=== PATIENT | female | born 1940 | race Caucasian/White ===

== ENCOUNTER 2016-09-03 08:00 | Outpatient (CLI) | payer MEDICARE, OTHER | END 2016-09-03 23:59 | DX: I12.9 Hypertensive chronic kidney disease with stage 1 through stage 4 chronic kidney disease, or unspecified chronic kidney disease (principal); N18.3 Chronic kidney disease, stage 3 (moderate); K52.9 Noninfective gastroenteritis and colitis, unspecified ==

== ENCOUNTER 2016-09-19 16:48 | Outpatient (CLI) | payer MEDICARE, OTHER | END 2016-09-19 16:49 | disposition home or self-care (01) | DX: R35.0 Frequency of micturition (principal) ==

== ENCOUNTER 2016-09-25 08:05 | Outpatient (CLI) | payer MEDICARE, OTHER ==
[2016-09-25] MEDS ORDERED: IOPAMIDOL-300 50 ML VIAL PO ONE (10:32)
[2016-09-25] MEDS ORDERED: IOPAMIDOL-300 100 ML VIAL IVP ONE (10:32)
== END 2016-09-25 08:06 | disposition home or self-care (01) ==
DX: K63.9 Disease of intestine, unspecified (principal); R14.0 Abdominal distension (gaseous); R19.4 Change in bowel habit; R16.0 Hepatomegaly, not elsewhere classified; R19.00 Intra-abdominal and pelvic swelling, mass and lump, unspecified site
CPT/HCPCS: 74177; Q9967

== ENCOUNTER 2016-10-03 10:49 | Inpatient (IN) | payer MEDICARE, OTHER ==
[2016-10-03] MEDS ORDERED: LACTATED RINGERS 1,000 ML IV ONE ×4 (11:03→18:12)
[2016-10-03] MEDS ORDERED: MIDAZOLAM 2 MG/2 ML VIAL ONE (12:07)
[2016-10-03] MEDS ORDERED: PROPOFOL 200 MG/20 ML VIAL IVP ONE (12:53)
[2016-10-03] MEDS ORDERED: LIDOCAINE 2% 10 ML MDV SUBQ ONE (12:53)
[2016-10-03] MEDS ORDERED: HYDROmorphone 1 MG/ML SYRINGE IVP ONE (12:53)
[2016-10-03] MEDS ORDERED: NEOSTIGMINE 1 MG/1 ML 10 ML MDV IVP ONE (12:53)
[2016-10-03] MEDS ORDERED: ACETAMINOPHEN 1,000 MG/100 ML VIAL IV ONE (12:53)
[2016-10-03] MEDS ORDERED: MIDAZOLAM 2 MG/2 ML VIAL IVP ONE (12:53)
[2016-10-03] MEDS ORDERED: DEXAMETHASONE 4 MG/ML VIAL IVP ONE (12:53)
[2016-10-03] MEDS ORDERED: ROCURONIUM 50 MG/5 ML VIAL IVP ONE (12:53)
[2016-10-03] MEDS ORDERED: SUCCINYLCHOLINE 200 MG/10 ML VIAL IVP ONE (12:53)
[2016-10-03] MEDS ORDERED: ONDANSETRON 4 MG/2 ML VIAL IVP ONE (12:53)
[2016-10-03] MEDS ORDERED: ePHEDrine 50 MG/ML VIAL IVP ONE (12:53)
[2016-10-03] MEDS ORDERED: KETOROLAC 30 MG/ML VIAL IVP ONE (12:53)
[2016-10-03] MEDS ORDERED: ESMOLOL 100 MG/10 ML VIAL IVP ONE (12:53)
[2016-10-03] MEDS ORDERED: PHENYLEPHRINE 50 MG/5 ML VIAL IV ONE (12:53)
[2016-10-03] MEDS ORDERED: GLYCOPYRROLATE 1 MG/5 ML VIAL IVP ONE (12:53)
[2016-10-03] MEDS ORDERED: AMPICILLIN/SULBACTAM 3 GM in SODIUM CHLORIDE 0.9% MINIBAG 100 ML IV ONE (13:54)
[2016-10-03] MEDS ORDERED: POTASSIUM CHLORIDE INJ 40 MEQ in SODIUM CHLORIDE 0.9% 480 ML IV ONE (14:25)
[2016-10-03] MEDS ORDERED: BUPIVACAINE 0.5% PF 30 ML VIAL SUBQ ONE (17:18)
[2016-10-03] MEDS ORDERED: LIDOCAINE 1%-EPI 1:100000 20 ML MDV SUBQ ONE (17:19)
[2016-10-03] MEDS ORDERED: METOCLOPRAMIDE 10 MG/2 ML VIAL IVP PRN (18:31)
[2016-10-03] MEDS ORDERED: HYDROmorphone 1 MG/ML SYRINGE IVP PRN (18:31)
[2016-10-03] MEDS ORDERED: LORazepam 2 MG/ML SYRINGE IVP PRN (18:31)
[2016-10-03] MEDS ORDERED: BENZOCAINE/TETRACAINE/BUTAMBEN 20 GM MM PRN ×2 (18:31→19:05)
[2016-10-03] MEDS ORDERED: diphenhydrAMINE INJ 50 MG/ML VIAL IVP PRN (18:45)
[2016-10-03] MEDS ORDERED: HYDROmorphone PCA 10 MG IV PRN (18:45)
[2016-10-03] MEDS ORDERED: BENZOCAINE/TETRACAINE/BUTAMBEN SPRAY 56 GM MM PRN (19:01)
[2016-10-03] MEDS: AMPICILLIN/SULBACTAM 3 GM in SODIUM CHLORIDE 0.9% MINIBAG 100 ML IV SCH ×2 (19:32→23:52)
[2016-10-03] MEDS: PANTOPRAZOLE 40 MG VIAL IVP SCH (19:32)
[2016-10-03] MEDS: D5NS W/20 MEQ KCL 1,000 ML IV SCH (19:32)
[2016-10-04] MEDS: D5NS W/20 MEQ KCL 1,000 ML IV SCH ×3 (02:39→22:09)
[2016-10-04] MEDS: AMPICILLIN/SULBACTAM 3 GM in SODIUM CHLORIDE 0.9% MINIBAG 100 ML IV SCH ×2 (06:10→12:25)
[2016-10-04] MEDS: PANTOPRAZOLE 40 MG VIAL IVP SCH (06:11)
[2016-10-04] MEDS: ENOXAPARIN 40 MG/0.4 ML SYRINGE SUBQ SCH (08:49)
[2016-10-04] MEDS: AZILSARTAN MEDOXOMIL 80 MG PO SCH (08:52)
[2016-10-04] MEDS: ACETAMINOPHEN 1,000 MG/100 ML 100 ML IV PRN (13:21)
[2016-10-04] MEDS: HYDROmorphone PCA 10 MG IV PRN (19:59)
[2016-10-05] MEDS: ACETAMINOPHEN 1,000 MG/100 ML 100 ML IV PRN ×2 (00:26→17:17)
[2016-10-05] MEDS: PANTOPRAZOLE 40 MG VIAL IVP SCH (07:26)
[2016-10-05] MEDS: D5NS W/20 MEQ KCL 1,000 ML IV SCH ×2 (08:20→16:10)
[2016-10-05] MEDS ORDERED: SODIUM PHOSPHATE 20 MMOL in SODIUM CHLORIDE 0.9% 250 ML IV ONE (09:00)
[2016-10-05] MEDS: ENOXAPARIN 40 MG/0.4 ML SYRINGE SUBQ SCH (09:50)
[2016-10-05] MEDS: AZILSARTAN MEDOXOMIL 80 MG PO SCH (10:03)
[2016-10-06] MEDS: HYDROmorphone PCA 10 MG IV PRN (00:16)
[2016-10-06] MEDS: D5NS W/20 MEQ KCL 1,000 ML IV SCH ×3 (00:27→21:26)
[2016-10-06] MEDS: PANTOPRAZOLE 40 MG VIAL IVP SCH (06:18)
[2016-10-06] MEDS ORDERED: METOPROLOL 5 MG/5 ML VIAL IVP ONE ×2 (08:14→09:00)
[2016-10-06] MEDS: AZILSARTAN MEDOXOMIL 80 MG PO SCH (08:41)
[2016-10-06] MEDS: ENOXAPARIN 40 MG/0.4 ML SYRINGE SUBQ SCH (08:45)
[2016-10-06] MEDS ORDERED: IOPAMIDOL-300 50 ML VIAL IVP ONE (10:30)
[2016-10-06] MEDS: diltiaZEM 30 MG TABLET PO SCH ×2 (12:53→16:58)
[2016-10-06] MEDS: CEFEPIME 2 GM in SODIUM CHLORIDE 0.9% MINIBAG 100 ML IV SCH ×2 (16:58→21:25)
[2016-10-06] MEDS: ACETAMINOPHEN 1,000 MG/100 ML 100 ML IV SCH (18:36)
[2016-10-07] MEDS: diltiaZEM 30 MG TABLET PO SCH ×4 (00:02→17:23)
[2016-10-07] MEDS: ACETAMINOPHEN 1,000 MG/100 ML 100 ML IV SCH ×3 (02:20→17:23)
[2016-10-07] MEDS: HYDROmorphone PCA 10 MG IV PRN (02:51)
[2016-10-07] MEDS: PANTOPRAZOLE 40 MG VIAL IVP SCH (06:01)
[2016-10-07] MEDS ORDERED: SODIUM CHLORIDE FLUSH 0.9% 10 ML SYRINGE IVP ONE (06:40)
[2016-10-07] MEDS: ONDANSETRON 4 MG/2 ML VIAL IVP PRN (06:43)
[2016-10-07] MEDS: CEFEPIME 2 GM in SODIUM CHLORIDE 0.9% MINIBAG 100 ML IV SCH ×2 (09:07→20:53)
[2016-10-07] MEDS: D5NS W/20 MEQ KCL 1,000 ML IV SCH (09:07)
[2016-10-07] MEDS: AZILSARTAN MEDOXOMIL 80 MG PO SCH (09:08)
[2016-10-07] MEDS: ENOXAPARIN 40 MG/0.4 ML SYRINGE SUBQ SCH (09:08)
[2016-10-07] MEDS ORDERED: D5NS W/20 MEQ KCL 1,000 ML IV SCH (15:03)
[2016-10-08] MEDS: diltiaZEM 30 MG TABLET PO SCH ×4 (00:36→18:25)
[2016-10-08] MEDS: ACETAMINOPHEN 1,000 MG/100 ML 100 ML IV SCH ×3 (02:11→18:29)
[2016-10-08] MEDS: PANTOPRAZOLE 40 MG VIAL IVP SCH (06:16)
[2016-10-08] MEDS: AZILSARTAN MEDOXOMIL 80 MG PO SCH (09:19)
[2016-10-08] MEDS: ENOXAPARIN 40 MG/0.4 ML SYRINGE SUBQ SCH (09:19)
[2016-10-08] MEDS: CEFEPIME 2 GM in SODIUM CHLORIDE 0.9% MINIBAG 100 ML IV SCH ×2 (09:19→22:07)
[2016-10-08] MEDS: HYDROmorphone PCA 10 MG IV PRN (15:05)
[2016-10-08] MEDS: HYDROcod/ACETAM 5/325 MG TABLET PO PRN (19:37)
[2016-10-08] MEDS: ACETAMINOPHEN 500 MG TABLET PO PRN (19:38)
[2016-10-08] MEDS: D5NS W/20 MEQ KCL 1,000 ML IV SCH (19:40)
[2016-10-08] MEDS ORDERED: HYDROmorphone 1 MG/ML SYRINGE IVP PRN (20:23)
[2016-10-09] MEDS: HYDROcod/ACETAM 5/325 MG TABLET PO PRN ×4 (00:24→17:04)
[2016-10-09] MEDS: diltiaZEM 30 MG TABLET PO SCH ×4 (00:30→17:03)
[2016-10-09] MEDS: D5NS W/20 MEQ KCL 1,000 ML IV SCH (00:48)
[2016-10-09] MEDS: PANTOPRAZOLE 40 MG VIAL IVP SCH (06:10)
[2016-10-09] MEDS: ONDANSETRON 4 MG/2 ML VIAL IVP PRN ×2 (08:01→12:24)
[2016-10-09] MEDS: ACETAMINOPHEN 500 MG TABLET PO PRN (08:02)
[2016-10-09] MEDS: AZILSARTAN MEDOXOMIL 80 MG PO SCH (09:07)
[2016-10-09] MEDS: CEFEPIME 2 GM in SODIUM CHLORIDE 0.9% MINIBAG 100 ML IV SCH (09:07)
[2016-10-09] MEDS: ENOXAPARIN 40 MG/0.4 ML SYRINGE SUBQ SCH (09:07)
[2016-10-09] MEDS ORDERED: SIMETHICONE CHEW 80 MG TABLET PO SCH (13:00)
== END 2016-10-09 17:33 | disposition home or self-care (01) | DRG 375 ==
PROC: 0DJD8ZZ Inspection of Lower Intestinal Tract, Via Natural or Artificial Opening Endoscopic (ICD-10-PCS; 2016-10-03)
PROC: 0DBN0ZZ Excision of Sigmoid Colon, Open Approach (ICD-10-PCS; principal; 2016-10-03 12:00)
PROC: 0D1N0Z4 Bypass Sigmoid Colon to Cutaneous, Open Approach (ICD-10-PCS; 2016-10-03 12:00)
DX: C18.7 Malignant neoplasm of sigmoid colon (principal); C48.1 Malignant neoplasm of specified parts of peritoneum; I48.91 Unspecified atrial fibrillation; R09.02 Hypoxemia; I10 Essential (primary) hypertension; G47.33 Obstructive sleep apnea (adult) (pediatric); M43.20 Fusion of spine, site unspecified; E66.9 Obesity, unspecified; Z68.29 Body mass index [BMI] 29.0-29.9, adult; Z79.82 Long term (current) use of aspirin; Z79.899 Other long term (current) drug therapy; Z86.79 Personal history of other diseases of the circulatory system; Z96.649 Presence of unspecified artificial hip joint; Z87.891 Personal history of nicotine dependence

== ENCOUNTER 2016-10-29 06:04 | Day surgery (SDC) | payer MEDICARE, OTHER ==
[2016-10-29] MEDS ORDERED: ceFAZolin 2 GM/50 ML 50 ML IV ONE (06:35)
[2016-10-29] MEDS ORDERED: LACTATED RINGERS 1,000 ML IV ONE (06:48)
[2016-10-29] MEDS ORDERED: BUPIVACAINE 0.5% PF 30 ML VIAL SUBQ ONE ×3 (07:58→08:06)
[2016-10-29] MEDS ORDERED: ONDANSETRON 4 MG/2 ML VIAL IVP ONE (08:10)
[2016-10-29] MEDS ORDERED: fentaNYL 100 MCG/2 ML VIAL IVP ONE (08:10)
[2016-10-29] MEDS ORDERED: PROPOFOL 200 MG/20 ML VIAL IVP ONE (08:10)
[2016-10-29] MEDS ORDERED: MIDAZOLAM 2 MG/2 ML VIAL IVP ONE (08:10)
[2016-10-29] MEDS ORDERED: LIDOCAINE-MPF 2% 5 ML VIAL IM ONE (08:10)
--- NOTE | 2016-10-29 08:52 | OPERATIVE REPORT ---
Operative Report - General Procedure Date: 10/29/16 Planned Procedure: Portacath placement Pre-Op Diagnosis: Ovarian cancer Post Op Diagnosis: Same - Procedure Note Primary Surgeon: Kalani Anesthesia Provider: Mckinley Abbasi Anesthesia Technique: MAC (+ 10 mL 1/2% marcaine [id number] crystalloid) Estimated Blood Loss (in cc): 5 Complications: None. - Other Other Information/Narrative: OPERATIVE DESCRIPTION/REPORT: After verbal and written informed consent was obtained detailing the risks of infection, bleeding requiring transfusion with its risks, nerve injury, and , and after I met with the patient confirming the surgery and the site of the surgery and after initialing the site of the surgery with a surgical marker , the patient was brought to the operative suite and placed supine on the operating table. Great care was taken to avoid pressure points to prevent pressure necrosis or nerve injury. Monitoring devices were applied along with TEDs and pneumatic compressive stockings (to prevent DVT). The patient received preoperative antibiotics for surgical prophylaxis. Cosme Abbasi sedated and anethetized the patient for the entire procedure. The patient was prepped and draped in the usual sterile manner. With the patient draped my initials were clearly visible. A "time in" then confirmed that the patient was identified with 3 identifiers (name, birthdate and medical record number), the history and physical was in the chart, the signed consent confirming the procedure was in the chart, the patient was in the correct position, the aforementioned prophylactic measures were in place or given, we had the correct personel and equipment to complete the procedure and that anesthesia, surgery and nursing were given an opportunity to express any concerns. With the agreement of everyone in the room, we proceeded with the operation. After the subclavian region was anesthetized using % marcaine and the patient placed in Trendelenberg position, an Angi[employer] Smartport port kit ( Catalog #[id number], Lot #[id number]) was opened. The finder needle was inserted into the subclavian vein taking great care to place it just under the clavicle in order to minimize the risk of pneumothorax. When good venous blood return was obtained, the wire was placed through the needle and into the vein without difficulty. Cardiac irritability confirmed that the catheter was correctly going down towards the heart. Below and lateral to the needle insertion site, the area was anesthetized again using % marcaine and a transverse incision was made just large enough to accommodate the port. This incision was taken down to the fascia using sharp dissection and the area for the port was created using blunt downward dissection. Meticulous hemostasis was obtained using Bovie electrocautery. A knife was inserted along the wire to widen the insertion site and this was further dilated using a Ely. The port was flushed with heparinized saline and placed in the pouch and the catheter was then passed to the needle opening using the passer. The catheter was then measured against the patients anterior chest and cut so that the tip would lie 2 cm below the manubrial-sternal junction. The port was secured to the fascia using a 3-0 Prolene on the side of the opening of the port. The catheter was then wiped and wrapped with a heparinized soaked 4x4. The dilator and sheath were then carefully inserted over the wire and the dilator and wire withdrawn. The catheter was then inserted into the sheath and the sheath was broken away from the catheter leaving the catheter in place in the vein. An X- ray confirmed placement of the catheter tip in the right atrium/supracardiac vena cava without pneumothorax. Using a Hueber needle the port was accessed and good blood return as well as easy flush was noted. The subcutaneous tissue was approximated using 3-0 Vicryl and the skin incisions were approximated with 4-0 Monocryl in a subcuticular fashion. The skin prep was washed off and prepped with benzoin. Steristrips were applied. At this point a time out was performed that confirmed that all the counts were correct, the procedure that was performed, the blood loss, the IV fluids administered, and the patients condition. A dressing was placed on the wound. Having tolerated the procedure well, the patient was taken to short stay in good and stable condition. The patient was instructed that the Portacath could be used immediately.
--- NOTE | 2016-10-29 09:00 | XRAY Report ---
FRONTAL CHEST: 10/29/2016 CLINICAL INDICATION: Port placement. FINDINGS: Frontal view of the chest demonstrates a left subclavian port, with the catheter tip direc sudhakar superiorly, approximately 4 cm past the cavoatrial junction. No gross pneumothorax is seen on th is supine film. The cardiac silhouette is within normal limits. The lungs are clear. IMPRESSION: PORT PLACEMENT ABOVE. Results called to Dr. Uriarte in the operating room on 10/29/2016 at 8:40 a.m. JOB #: [id number] EXT JOB #:[id number]
[2016-10-29] MEDS ORDERED: METOCLOPRAMIDE 10 MG/2 ML VIAL IVP ONE (09:01)
--- NOTE | 2016-10-29 09:37 | XRAY Report ---
FRONTAL CHEST: 10/29/2016 CLINICAL INDICATION: Postop port placement. FINDINGS: Frontal view of the chest demonstrates a normal cardiac silhouette. A left subclavian port terminates in the superior vena cava. The lungs are clear. No effusion or pneumothorax is present. IMPRESSION: LEFT SUBCLAVIAN PORT TERMINATING IN THE DISTAL SUPERIOR VENA CAVA. JOB #: [id number] EXT JOB #:[id number]
[2016-10-29 09:39] VITALS: BP 149/76
== END 2016-10-29 06:05 | disposition home or self-care (01) ==
LOC: SDS 06:04
PROVIDERS: ATTEND Surgery
PROC: 02HV33Z Insertion of Infusion Device into Superior Vena Cava, Percutaneous Approach (ICD-10-PCS; 2016-10-29)
PROC: 0JH60XZ Insertion of Tunneled Vascular Access Device into Chest Subcutaneous Tissue and Fascia, Open Approach (ICD-10-PCS; principal; 2016-10-29 07:30)
DX: C56.9 Malignant neoplasm of unspecified ovary (principal); I12.9 Hypertensive chronic kidney disease with stage 1 through stage 4 chronic kidney disease, or unspecified chronic kidney disease; N18.3 Chronic kidney disease, stage 3 (moderate); I48.91 Unspecified atrial fibrillation; Z80.8 Family history of malignant neoplasm of other organs or systems; Z80.1 Family history of malignant neoplasm of trachea, bronchus and lung; G47.30 Sleep apnea, unspecified; E66.9 Obesity, unspecified; Z68.28 Body mass index [BMI] 28.0-28.9, adult
CPT/HCPCS: 36561; 71010; C1788; J0690; J7120

== ENCOUNTER 2016-12-28 15:21 | Outpatient (CLI) | payer MEDICARE, OTHER ==
--- NOTE | 2016-12-29 09:14 | XRAY Report ---
TROY' VIEW OF THE PARANASAL SINUSES: 12/28/2016 CLINICAL INDICATION: Nosebleed. COMPARISON: CT of the head 02/01/2016. Single Fernandez' view of the paranasal sinuses demonstrates normal aeration. Aneurysm coil material is noted in the left temporal fossa. No definite air-fluid levels are seen. IMPRESSION: NO DEFINITE EVIDENCE OF SINUS DISEASE. JOB #: [id number] EXT JOB #:[id number]
== END 2016-12-28 15:22 | disposition home or self-care (01) ==
LOC: DI.N 15:21
PROVIDERS: ATTEND Physician Assistant Medical
DX: R04.0 Epistaxis (principal)
CPT/HCPCS: 70210

== ENCOUNTER 2017-05-28 08:00 | Outpatient (CLI) | payer MEDICARE, OTHER ==
[2017-05-28 19:02] LABS: BASOPHILS % (AUTO) 0.2 %; HCT - HEMATOCRIT 29.6 % (37.0-47.0); HGB - HEMOGLOBIN 9.6 g/dL (12.0-16.0); LYMPHOCYTES % (AUTO) 9.5 %; MEAN CORPUSCULAR HGB CONC 32.3 g/dL (32.0-36.0); MEAN CORPUSCULAR VOLUME 96.1 fL (81.0-99.0); MEAN PLATELET VOLUME 8.6 fL (7.9-10.8); MONOCYTES % (AUTO) 17.7 %; NEUTROPHILS % (AUTO) 72.6 %; RED BLOOD COUNT 3.08 10^6/uL (4.20-5.40); RED CELL DISTRIBUTION WIDTH 17.4 % (12.0-15.0); UNCORRECTED WHITE BLOOD COUNT 11.2 x10^3/uL; WHITE BLOOD COUNT 11.2 x10^3/uL (4.8-10.8)
[2017-05-28 19:38] LABS: ALBUMIN/GLOBULIN RATIO 0.5 (1.0-2.2); BILIRUBIN,TOTAL 0.5 mg/dL (0.2-1.0); BUN - BLOOD UREA NITROGEN 12 mg/dL (6-20); CALCIUM 9.2 mg/dL (8.5-10.3); CARBON DIOXIDE - CO2 24 mmol/L (21-32); CHLORIDE 95 mmol/L (101-111); GFR - MDRD 54 (>89); GLUCOSE 120 mg/dL (70-100); IRON 13 ug/dL (28-170); SODIUM 133 mmol/L (135-145); TOTAL IRON BINDING CAPACITY 147 ug/dL (250-450); TOTAL PROTEIN 7.8 g/dL (6.7-8.2); TRANSFERRIN 105 mg/dL (192-382)
[2017-05-28 21:29] LABS: BAND NEUTROPHILS % (MANUAL) 21 %; LYMPHOCYTES % (MANUAL) 7 %; NEUTROPHILS % (MANUAL) 60 %; PLATELET ESTIMATE, MANUAL NORMAL (130-450,000) (NORMAL); PLATELET MORPHOLOGY RARE GIANT PLATELETS (NORMAL); TOTAL CELLS COUNTED 100
[2017-05-28 21:30] LABS: NP AUTO DIFFERENTIAL? YES; NP MAN DIFFERENTIAL? NO
== END 2017-05-28 08:01 | disposition home or self-care (01) ==
LOC: LAB.WCP 08:00
PROVIDERS: ATTEND Physician Assistant Medical
DX: C18.7 Malignant neoplasm of sigmoid colon (principal); R63.0 Anorexia; R11.0 Nausea
CPT/HCPCS: 36415; 80053; 82728; 83540; 84466; 85025; 86140

== ENCOUNTER 2017-05-29 12:19 | Outpatient (CLI) | payer MEDICARE, OTHER ==
[2017-05-29] MEDS ORDERED: IOPAMIDOL-300 50 ML VIAL ONE (12:27)
[2017-05-29] MEDS ORDERED: IOPAMIDOL-300 100 ML VIAL ONE (12:27)
[2017-05-29] MEDS ORDERED: IOPAMIDOL-300 50 ML VIAL PO ONE (14:01)
[2017-05-29] MEDS ORDERED: IOPAMIDOL-300 100 ML VIAL IVP ONE (14:01)
--- NOTE | 2017-05-29 15:32 | CT Report ---
EXAM: CT OF THE ABDOMEN AND PELVIS WITH CONTRAST: 05/29/2017 CLINICAL INDICATION: Anemia, nausea, anorexia. TECHNIQUE: Axial CT images of the abdomen and pelvis were obtained with 100 mL of Isovue 300 intravenously as well as oral contrast. COMPARISON: 03/19/2017. FINDINGS: Limited evaluation of the lung bases demonstrates minimal atelectasis. ABDOMEN: There is a small incisional abscess in the superior portion of the anterior abdominal incision, measuring 2.3 x 1.7 cm in the subcutaneous fat. The liver demonstrates multiple hypodensities, measuring up to 1.4 cm in the lateral left lobe, without significant interval change from previous. The spleen, pancreas, kidneys and adrenal glands appear unremarkable. The gallbladder is not dilated. There is a large abscess running in the left paracolic gutter, which extends from the level of the mid pole of left kidney down into the left iliac fossa in the pelvis, measuring 8.8 x 5.1 by approximately 17 cm. No small bowel dilatation is seen. PELVIS: There has been reversal of the left lower quadrant colostomy. Extending inferiorly from the staple line is a second abscess collection, measuring 3.6 x 7.6 x 3.1 cm. Additionally, there is a second incisional collection, measuring 2.8 x 2.6 cm in the lower anterior abdominal wall incision site. The osseous structures demonstrate degenerative and postsurgical changes. IMPRESSION: LARGE LEFT PERICOLIC GUTTER ABSCESS, ABSCESS IN THE LEFT PELVIS EXTENDING INFERIORLY FROM THE SIGMOID ANASTOMOSIS LINE, AND TWO SMALL ABSCESSES IN THE ANTERIOR ABDOMINAL WALL INCISION. CRITICAL RESULTS: Results called to Melody Del Angel PA-C, on 05/29/2017 at 2:[address] p[address] In accordance with CT protocol optimization, one or more of the following dose reduction techniques were utilized for this exam: automated exposure control, adjustment of mA and/or KV based on patient size, or use of iterative reconstructive technique. MD BRIJESH Jackson/KEREN TD: 05/29/2017 15:31 MTDD
== END 2017-05-29 12:20 | disposition home or self-care (01) ==
LOC: DI 12:19
PROVIDERS: ATTEND Physician Assistant Medical
DX: T81.4XXA Infection following a procedure, initial encounter (principal); K65.1 Peritoneal abscess; D64.9 Anemia, unspecified; R11.0 Nausea; R63.0 Anorexia; C18.7 Malignant neoplasm of sigmoid colon
CPT/HCPCS: 74177; Q9967

== ENCOUNTER 2017-06-06 08:00 | Outpatient (CLI) | payer MEDICARE, OTHER | END 2017-06-06 08:01 | disposition home or self-care (01) | LOC: LAB.WCP 08:00 | PROVIDERS: ATTEND Family Medicine | DX: R30.0 Dysuria (principal) | CPT/HCPCS: 87086 ==

== ENCOUNTER 2017-06-21 18:59 | Emergency (ER) | payer MEDICARE, OTHER ==
[2017-06-21] MEDS ORDERED: SODIUM CHLORIDE 0.9% 1,000 ML IV ONE ×2 (19:20→20:05)
[2017-06-21] MEDS ORDERED: SODIUM CHLORIDE IV ONE (19:26)
[2017-06-21 20:01] LABS: BASOPHILS % (AUTO) 0.1 %; HGB - HEMOGLOBIN 9.2 g/dL (12.0-16.0); LYMPHOCYTES # (AUTO) 1.9 10^3/uL (1.5-3.5); LYMPHOCYTES % (AUTO) 14.7 %; MEAN CORPUSCULAR HEMOGLOBIN 31.3 pg (27.0-31.0); MEAN CORPUSCULAR HGB CONC 33.7 g/dL (32.0-36.0); MEAN PLATELET VOLUME 7.2 fL (7.9-10.8); MONOCYTES % (AUTO) 15.3 %; NEUTROPHILS # (AUTO) 9.2 10^3/uL (1.5-6.6); NEUTROPHILS % (AUTO) 69.9 %; PLT - PLATELET COUNT 256 10^3/uL (130-450); RED BLOOD COUNT 2.93 10^6/uL (4.20-5.40); RED CELL DISTRIBUTION WIDTH 17.8 % (12.0-15.0); WHITE BLOOD COUNT 13.2 x10^3/uL (4.8-10.8)
[2017-06-21] MEDS ORDERED: PROMETHAZINE INJ 12.5 MG in SODIUM CHLORIDE 0.9% 50 ML IV STA (20:08)
--- NOTE | 2017-06-21 20:08 | ED Physician Documentation ---
History of Present Illness - Stated complaint Stated Complaint: NAUSEA - Chief complaint Chief Complaint: Abd Pain - History obtained from History obtained from: Patient, Family - History of Present Illness Timing: How many days ago (several) Pain level max: 0 Pain level now: 0 Improved by: zofran, reglan, compazine, ativan Worsened by: eating - Additonal information Additional information: Patient is a eric 77-year-old female who presents to the emergency department after a recent complicated medical history. She was treated for ovarian cancer , went through chemotherapy and then had a debulking surgery in April. She also had a reversal of her colostomy. This was then complicated by intra- abdominal abscesses for which she has a drain in place. She has had continued nausea since that time. Recently admitted to [facility] for same, was rehydrated and sent home. Sent in today by her gynecology oncologist for rehydration. She had a mildly elevated temperature at home, mild cough. Is not currently undergoing chemotherapy. She has Ativan, Zofran, Compazine and Reglan at home for her nausea and vomiting. Review of Systems Ten Systems: 10 systems reviewed and negative Constitutional: reports: Fever (99.6). denies: Chills Ears: denies: Ear pain Nose: denies: Rhinorrhea / runny nose, Congestion Respiratory: denies: Cough GI: denies: Hematemesis, Bloody / black stool Skin: denies: Rash Musculoskeletal: denies: Neck pain, Back pain Neurologic: denies: Headache PD PAST MEDICAL HISTORY - Past Medical History Cardiovascular: Other Respiratory: None Endocrine/Autoimmune: None GI: Ulcers : None HEENT: None Psych: None Musculoskeletal: None Derm: None - Past Surgical History General: Colonoscopy, Other Ortho: Hip replacement, Spine surgery /[employer]: Hysterectomy, Oophrectomy Neuro: Other HEENT: Other - Present Medications Home Medications: Ambulatory Orders Medication Instructions Recorded Confirmed Azilsartan Medoxomil [Edarbi] 80 mg PO DAILY 08/23/14 04/16/17 Aspirin [Aspirin EC] 81 mg PO DAILY 10/01/16 04/16/17 LORazepam [Lorazepam] 0.5 mg PO Q6H PRN 11/04/16 04/16/17 Lidocaine/Prilocain 2.5% Cream 30 gm TOP PRN PRN 11/04/16 04/16/17 [Emla 2.5% Cream] Ondansetron HCl [Zofran] 4 mg PO Q4H PRN 11/04/16 04/16/17 Prochlorperazine Maleate 10 mg PO Q6H PRN 11/04/16 04/16/17 [Compazine] Docusate Calcium 240 mg PO DAILY 06/21/17 06/21/17 Levofloxacin [Levaquin] 750 mg PO DAILY 06/21/17 06/21/17 Metoclopramide [Reglan] 10 mg PO Q8H PRN 06/21/17 06/21/17 Sertraline [Zoloft] 50 mg PO DAILY 06/21/17 06/21/17 - Allergies Allergies/Adverse Reactions: Allergies Allergy/AdvReac Type Severity Reaction Status Date / Time telmisartan [From Micardis] AdvReac Severe Increased Verified 06/21/17 19:07 Heart Rate atorvastatin calcium * AdvReac Intermediate Cough Verified 06/21/17 19:07 [From Lipitor] Lisnopril AdvReac Severe Increased Uncoded 06/21/17 19:07 Heart Rate - Social History Does the pt smoke?: No Smoking Status: Former smoker Does the pt drink ETOH?: No Does the pt have substance abuse?: No - Immunizations Immunizations are current?: Yes PD ED PE NORMAL - Vitals Vital signs reviewed: Yes - General General: Alert and oriented X 3, No acute distress, Well developed/nourished - HEENT HEENT: Other (dry lips and tongue) - Neck Neck: Supple, no meningeal sign - Cardiac Cardiac: RRR, Strong equal pulses - Respiratory Respiratory: No respiratory distress, Clear bilaterally - Abdomen Abdomen: Normal bowel sounds, Soft, Non tender, Non distended, Other (drain in the LLQ with no signs of infection. draining brown liquid.) - Derm Derm: Warm and dry, No rash - Neuro Neuro: Alert and oriented X 3 - Psych Psych: Normal mood, Normal affect Results - Vitals Vitals: Vital Signs - 24 hr 06/21/17 06/21/17 06/21/17 19:02 20:48 22:23 Temperature 36.6 C Heart Rate 109 H 101 H 107 H Respiratory 18 18 18 Rate Blood Pressure 100/57 L 114/51 L 100/63 O2 Saturation 100 100 100 Oxygen O2 Source [With Activity] Room air O2 Source [Without Activity] Room air O2 Source Room air - Labs Labs: Laboratory Tests 06/21/17 06/21/17 06/21/17 19:43 19:43 20:22 WBC 13.2 H RBC 2.93 L Hgb 9.2 L Hct 27.2 L MCV 93.0 MCH 31.3 H MCHC 33.7 RDW 17.8 H Plt Count 256 MPV 7.2 L Neut # 9.2 H Lymph # 1.9 Woodruff # 2.0 H Eos # 0.0 Baso # 0.0 Absolute Nucleated RBC 0.00 Nucleated RBC % 0.0 Platelet Estimate NORMAL (130-450,000) Platelet Morphology NORMAL APPEARANCE RBC Morph Micro Appear 2+ POIKILOCYTOSIS Sodium 128 L Potassium 4.0 Chloride 91 L Carbon Dioxide 21 Anion Gap 16.0 H BUN 23 H Creatinine 1.7 H Estimated GFR (MDRD) 29 L Glucose 136 H Calcium 9.3 Total Bilirubin 0.5 AST 13 ALT < 10 L Alkaline Phosphatase 58 Total Protein 7.5 Albumin 3.0 L Globulin 4.5 H Albumin/Globulin Ratio 0.7 L Lipase 18 L Influenza A (Rapid) Negative Influenza B (Rapid) Negative Influenza Types A,B Ag - PD MEDICAL DECISION MAKING - ED course Complexity details: reviewed old records, reviewed results, re-evaluated patient , considered differential, d/w patient, d/w family ED course: Patient is a 77-year-old female who presents to the emergency department with what appears to be significant dehydration. Given 2 L of IV fluids. Tolerating p.o. well here. We did discuss placement in the hospital for continued hydration and possibly starting on TPN. Patient does not want to do this at this time and wants to go home. She will follow-up with her gynecology oncologist on Saturday. She will return if she worsens. She is able to tolerate p.o. in the emergency department. Family is comfortable taking her home. Patient and family counseled regarding signs and symptoms for which I believe and urgent re-evaluation would be necessary. Patient with good understanding of and agreement to plan and is comfortable going home at this time This document was made in part using voice recognition software. While efforts are made to proofread this document, sound alike and grammatical errors may occur. Departure - Departure Disposition: Home, Self Care Clinical Impression: Dehydration, Hyponatremia Condition: Good Instructions: ED Dehydration, ED Hyponatremia Follow-Up: Melody Del Angel PA-C [Primary Care Provider] - Within 1 week Comments: Drink plenty of fluids at home. Talk to your doctor about standing orders for hydration at the [facility] or possibly TPN for home to supplement your nutrition. Return if you worsen. Discharge Date/Time: 06/21/17 23:29
[2017-06-21 20:10] LABS: ALBUMIN/GLOBULIN RATIO 0.7 (1.0-2.2); ALKALINE PHOSPHATASE 58 IU/L (42-121); ALT ALANINE AMINOTRANSFERASE < 10 IU/L (10-60); AST ASPARTATE AMINOTRANSFERASE 13 IU/L (10-42); BILIRUBIN,TOTAL 0.5 mg/dL (0.2-1.0); BUN - BLOOD UREA NITROGEN 23 mg/dL (6-20); CALCIUM 9.3 mg/dL (8.5-10.3); CARBON DIOXIDE - CO2 21 mmol/L (21-32); CHLORIDE 91 mmol/L (101-111); CREATININE 1.7 mg/dL (0.4-1.0); GFR - MDRD 29 (>89); GLUCOSE 136 mg/dL (70-100); LIPASE 18 U/L (22-51); SODIUM 128 mmol/L (135-145); TOTAL PROTEIN 7.5 g/dL (6.7-8.2)
[2017-06-21] MEDS ORDERED: PROMETHAZINE 25 MG/1 ML VIAL ONE (20:21)
[2017-06-21 20:44] LABS: PLATELET ESTIMATE, MANUAL NORMAL (130-450,000) (NORMAL); PLATELET MORPHOLOGY NORMAL APPEARANCE (NORMAL)
[2017-06-21] MEDS ORDERED: ONDANSETRON 4 MG/2 ML VIAL IVP STA (22:09)
[2017-06-21 22:24] VITALS: BP 100/63
[2017-06-21] MEDS ORDERED: ACETAMINOPHEN 325 MG TABLET PO STA (22:48)
== END 2017-06-21 23:29 | disposition home or self-care (01) ==
LOC: ED 18:59
DX: E86.0 Dehydration (principal); E87.1 Hypo-osmolality and hyponatremia; N39.0 Urinary tract infection, site not specified; N73.9 Female pelvic inflammatory disease, unspecified; R11.2 Nausea with vomiting, unspecified; Z87.891 Personal history of nicotine dependence; Z93.3 Colostomy status; Z92.21 Personal history of antineoplastic chemotherapy; Z90.721 Acquired absence of ovaries, unilateral; Z85.43 Personal history of malignant neoplasm of ovary; Z96.649 Presence of unspecified artificial hip joint
CPT/HCPCS: 36415; 80053; 83605; 83690; 85025; 85651; 86140; 87040; 87086; 87275; 87276; 96361; 96365; 96375; 99283; 99284; A9270

== ENCOUNTER 2018-04-21 12:03 | Outpatient (CLI) | payer MEDICARE, OTHER ==
[2018-04-21 18:43] LABS: BILIRUBIN,URINE NEGATIVE (NEGATIVE); GLUCOSE, URINE (UA) NEGATIVE (NEGATIVE); KETONES,URINE (UA) NEGATIVE (NEGATIVE); LEUKOCYTE ESTERASE, URINE TRACE (NEGATIVE); NITRITE,URINE NEGATIVE (NEGATIVE); OCCULT BLOOD,URINE NEGATIVE (NEGATIVE); PROTEIN,URINE NEGATIVE (NEGATIVE); UROBILINOGEN,URINE 0.2 (NORMAL) E.U./dL (NORMAL)
[2018-04-21 18:59] LABS: BACTERIA,URINE None Seen /HPF (None Seen); CLARITY,URINE CLEAR (CLEAR); RBC,URINE 0-5 /HPF (0-5); SQUAMOUS EPITHELIAL CELL,UR NONE SEEN (<= Few)
== END 2018-04-21 23:59 | disposition home or self-care (01) ==
LOC: LAB.WCP 12:03
PROVIDERS: ATTEND Family Medicine
DX: N12 Tubulo-interstitial nephritis, not specified as acute or chronic (principal)
CPT/HCPCS: 81001; 87086

== ENCOUNTER 2018-12-09 08:49 | Outpatient (CLI) | payer MEDICARE, OTHER ==
--- NOTE | 2018-12-09 16:06 | XRAY Report ---
Reason: chest pain Procedure Date: 12/09/2018 Accession Number: [id number] / [id number] Procedure: XRN - Chest 2 View X-Ray CPT Code: 17158 FULL RESULT: EXAM: CHEST RADIOGRAPHY. EXAM DATE: 12/09/2018 09:32 AM. CLINICAL HISTORY: Chest pain. COMPARISON: CHEST 1 VIEW 10/29/2016 9:07 AM. CHEST W/ 03/19/2017 11:05 AM. TECHNIQUE: 2 views. FINDINGS: Lungs/Pleura: No focal opacities evident. No pleural effusion. No pneumothorax. Normal volumes. Mediastinum: Heart and mediastinal contours are unremarkable. Other: Stable left Port-A-Cath. IMPRESSION: No acute process seen in the chest. RADIA
== END 2018-12-09 08:50 | disposition home or self-care (01) ==
LOC: DI.N 08:49
PROVIDERS: ATTEND Family Medicine
DX: R07.9 Chest pain, unspecified (principal)
CPT/HCPCS: 71046

== ENCOUNTER 2020-06-09 16:54 | Outpatient (CLI) | payer MEDICARE, OTHER ==
--- NOTE | 2020-06-09 17:57 | XRAY Report ---
PROCEDURE: Foot 3 View RT INDICATIONS: ANKLE PAIN, RIGHT TECHNIQUE: 3 views of the foot were acquired. COMPARISON: None FINDINGS: Bones: There is diffuse osteopenia. No acute fracture or dislocation. Osteoarthritic changes are note d throughout right foot. Bipartite medial sesamoid of first metatarsal head is seen. Suggestion of si gnificant soft tissue swelling over lateral malleolus is seen. Small plantar and dorsal calcaneal ent hesophytes are seen. No suspicious bony lesions. Soft tissues: No tibiotalar joint effusion. Achilles tendon appears normal. IMPRESSION: Osteopenia. Right foot osteoarthritis. No gross acute fracture or dislocation. Significant lateral an kle soft tissue swelling. Reviewed by: Faraz Sterling MD on 06/09/2020 5:56 PM PST Approved by: Faraz Sterling MD on 06/09/2020 5:56 PM PST Station ID: [id number]
--- NOTE | 2020-06-09 18:18 | XRAY Report ---
PROCEDURE: Ankle 3 View RT INDICATIONS: ANKLE PAIN, RIGHT TECHNIQUE: 3 views of the ankle were acquired. COMPARISON: None. FINDINGS: Bones: No fractures or dislocations. Ankle mortise is normally aligned. No suspicious bony lesions . Soft tissues: No tibiotalar joint effusion. Achilles tendon appears normal. Marked soft tissue swe lling around ankle joint is seen. Ill-defined calcifications in posterior medial aspect of right dist al lower leg soft tissue is seen which likely represent vascular calcifications versus sequela of rem ote soft tissue injury. IMPRESSION: No gross acute left ankle fracture or dislocation. Osteopenia. Marked ankle soft tissue swelling. Reviewed by: Faraz Sterling MD on 06/09/2020 6:17 PM PST Approved by: Faraz Sterling MD on 06/09/2020 6:17 PM PST Station ID: [id number]
== END 2020-06-09 16:55 | disposition home or self-care (01) ==
LOC: DI.N 16:54
PROVIDERS: ATTEND Physician Assistant Medical
DX: M19.071 Primary osteoarthritis, right ankle and foot (principal); M85.871 Other specified disorders of bone density and structure, right ankle and foot

== ENCOUNTER 2020-10-24 08:00 | Outpatient (CLI) | payer MEDICARE, OTHER ==
[2020-10-24 19:04] LABS: BASOPHILS % (AUTO) 0.5 %; EOSINOPHILS # (AUTO) 0.1 10^3/uL (0.0-0.7); EOSINOPHILS % (AUTO) 2.2 %; HCT - HEMATOCRIT 30.8 % (37.0-47.0); HGB - HEMOGLOBIN 9.7 g/dL (12.0-16.0); LYMPHOCYTES # (AUTO) 2.1 10^3/uL (1.5-3.5); LYMPHOCYTES % (AUTO) 32.8 %; MEAN CORPUSCULAR HGB CONC 31.5 g/dL (32.0-36.0); MEAN CORPUSCULAR VOLUME 101.7 fL (81.0-99.0); MONOCYTES # (AUTO) 0.7 10^3/uL (0.0-1.0); MONOCYTES % (AUTO) 11.4 %; NEUTROPHILS # (AUTO) 3.3 10^3/uL (1.5-6.6); NEUTROPHILS % (AUTO) 52.9 %; PLT - PLATELET COUNT 191 10^3/uL (130-450); RED BLOOD COUNT 3.03 10^6/uL (4.20-5.40); RED CELL DISTRIBUTION WIDTH 17.1 % (12.0-15.0); WHITE BLOOD COUNT 6.3 x10^3/uL (4.8-10.8)
[2020-10-24 19:30] LABS: ALBUMIN 3.9 g/dL (3.2-5.5); BILIRUBIN,TOTAL 0.9 mg/dL (0.2-1.0); CALCIUM 9.2 mg/dL (8.5-10.3); CREATININE 1.4 mg/dL (0.4-1.0); POTASSIUM 3.4 mmol/L (3.5-5.0); TOTAL PROTEIN 7.7 g/dL (6.7-8.2)
== END 2020-10-24 23:59 | disposition home or self-care (01) ==
LOC: LAB.N 08:00
PROVIDERS: ATTEND Nurse Practitioner
DX: R60.0 Localized edema (principal)
CPT/HCPCS: 36415; 80053; 83880; 85025

== ENCOUNTER 2022-02-07 10:38 | Outpatient (CLI) | payer MEDICARE, OTHER ==
[2022-02-07 11:25] VITALS: BP 118/78
--- NOTE | 2022-02-07 11:25 | SLEEP CARE CONSULTATION ---
Information from patient questionnaire entered by Jhonatan Masters MA. I have reviewed and concur with the information entered by Jhonatan Masters MA. This document represents the service I personally performed and the decisions made by , Margareth Gaffney ARNP. History of Present Illness Service Date and Time: 02/07/2022 1038 Reason for Visit: New patient (LAST SEEN 07/2009, ), sleep apnea on CPAP therapy, Re-establish care, Other (BROKEN CPAP) Accompanied by: Spouse Chief Complaint: reports: Unrefreshed sleep, Other (UPDATE SUPPLIES) Date of Onset: 6 MONTHS Usual bedtime: 11 PM Time it takes to fall asleep: 5 MINUTES Snores at night: Yes Observed to quit breathing while asleep: Yes Sleeps alone due to snoring: No Number of times waking at night: 2 Reasons for waking at night: reports: Bathroom. denies: Choking, Gasping for air Toss, Turn, or Twitch while sleeping: Yes Recalls having dreams: No Usually gets out of bed at: 0830 Feels refreshed in the morning: No Morning headache: No Sleepy or fatigued during the day: Yes Ever fallen asleep while driving: No Takes day naps: No Dreams during day naps: No Prior sleep studies: Yes Year and Where: 2007 [facility] Type of Sleep Study: Polysomnography Additional HPI information: CARMEN ISRAEL was previously diagnosed to have mild, AHI 13.7, obstructive sleep apnea-hypopnea syndrome and comes in today with spouse to re-establish care for CPAP therapy. - Parasomnia Symptoms Ever been unable to move upon waking from sleep: No Walks in sleep: No Talks in sleep: No Ever acted out dreams in sleep: No Ever felt weak in the knees when startled or emotional: No Bothered by creepy, crawly, restless sensations in legs: No Problems with memory or concentration: No CPAP Compliance Data - Data Reviewed with Patient Average duration of nightly device use: 8 HOURS 23 MINUTES Compliance rate %: 99.4 (08/10/2021-02/05/2022; 180/180 days) Current pressure setting (cmH2O): 10 Humidity settin Average residual AHI: 1.3 Average large leak: 35 SECONDS Compliance data discussion: She has a Dreamstation that she received in 2009. She states it is now making a loud sound when running and is leaking around machine. She still gets supplies from [employer]. She is using a nasal pillows mask, P10 Resmed. She uses it every night. Subjective Patient concerns: denies: aerophagia, mask discomfort, air blowing in eyes, mask leak noise, condensation in mask/hose, nasal congestion, dry mouth, nose, throat, epistaxis, other Observed to snore while using device: No Current pressure setting perceived as: comfortable On therapy, patient: reports: sleeping better, awakening more refreshed, being more awake and alert during the day, more rested overall. denies: drowsiness while driving Initial [place] Sleepiness Scale score: 4 (02/07/2022) Past Medical History Past Medical History: reports: Coronary Heart Disease, Other (OVARIAN CANCER (had chemotherapy; on hormonal therapy now), OSTOMY BAG ) Social History The patient's occupation is a RE. Patient is and lives in [place]. Have you smoked in the past 12 months: No Cigarettes per day (20/pack): 20 Years of smokin Quit date: 1981 Smoking Pack Years: 15.0 Alcohol use: No Caffeine use: No Family History Family history of sleep disordered breathing: Yes Family Hx Sleep Apnea: Mother: Snoring, Sleep apnea - Untreated, Sibling: Snoring, Other: Sleep apnea - Treated (son on CPAP) Allergies and Home Medications Known drug allergies: Yes (see list) Drug allergies reviewed: Yes Home medication list reviewed: Yes Allergy and home medication list: Allergies telmisartan [From Micardis] Adverse Reaction (Severe, Verified 06/21/17 19:07) Increased Heart Rate anxiety atorvastatin calcium * [From Lipitor] Adverse Reaction (Intermediate, Verified 06/21/17 19:07) Cough Lisnopril Adverse Reaction (Severe, Uncoded 06/21/17 19:07) Increased Heart Rate anxiety MEDICATION LIST acetaminophen 500mg q.d anastrozole 1mg carvediloL 12.5mg cyanocobalamin 1000mcg/15ml liguid prn ergocalciferol 50mcg (2000 unit) felodipine 2.5mg nitroglycerin 0.4mg pantoprazole 40mg rosuvastin 40mg torsemide 10mg VERIFIED BY Elsy MASTERS CMA AAMA 02/07/2022 1036 Review of Systems Weight loss over past 5 years: 20 Cardiovascular: reports: leg or foot swelling Gastrointestinal: reports: abdominal pain (related to stoma) Physical Exam Vital signs obtained and entered by: FABI CONTI Blood Pressure: 118/78 (R20, P74, RIGHT) Cuff size: wrist Heart Rate: 74 O2 Saturation: 99 (n95) Height: 5 ft 4 in Weight: 174 lb (clothes) Body Mass Index: 29.8 BMI Classification: Overweight Neck circumference: 14 (INCHES) Heart: regular rate and rhythm Lungs: clear bilaterally Impression and Plan 1. Obstructive Sleep Apnea-Hypopnea Syndrome, mild, with good treatment compliance and good apnea control. On CPAP therapy, the patient has better sleep quality and is more rested overall. Patient has been consistently using her CPAP since she started in 2007. She has significant improvement of her sleep apnea with an average residual AHI of 1.3. In the last 6 months she has had more daytime fatigue and unrefreshed sleep. She appears to be getting good therapy but she does have a much older machine that needs to be updated. She last upd ated her CPAP in 2009 with a Dreamstation by [employer]. Lately her machine has been making more noise, buttons on the top of her machine are sticking and there is leaking. The patients CPAP is over 5 years old and of reasonable use. In addition, it is starting to make louder noise, a sign of malfunction. Thus, the CPAP will be updated. A DWO prescription will be made. Compliance guidelines for new device and follow up discussed. Patient's apnea severity and rationale for treatment to reduce apnea, improve sleep quality and reduce cardiovascular and cerebrovascular events was reviewed. I also reviewed the benefit of consistent device use of CPAP for cardiac disease. * Continue CPAP pressure at 10 cmH2O * Update device * Update supplies * Notify me if snoring with mask or feeling that the pressure is too much or too little * Attempt to lose weight * Call this office if any problems using CPAP * Return for follow up one month after obtaining new device, or sooner if concerns arise Counseling Topics: Spare mask, Weight loss health impact Visit Type: In Office Other Participants: Spouse/Significant Other Time Spent with Patient (minutes): 34 Provider Statement: I spent 100% of the Face to Face Visit with the patient with greater than 50% spent counseling the patient and coordination of care.
== END 2022-02-07 10:39 | disposition home or self-care (01) ==
LOC: SC 10:38
PROVIDERS: ATTEND Nurse Practitioner Family
DX: G47.33 Obstructive sleep apnea (adult) (pediatric) (principal); E66.3 Overweight; Z68.29 Body mass index [BMI] 29.0-29.9, adult; Z87.891 Personal history of nicotine dependence
CPT/HCPCS: 99203; G0463; 99212

== ENCOUNTER 2022-05-07 10:27 | Outpatient (CLI) | payer MEDICARE, OTHER ==
[2022-05-07 10:56] VITALS: BP 118/70
--- NOTE | 2022-05-07 10:56 | SLEEP CARE CONSULTATION ---
Information from patient questionnaire entered by Michell Garcia. I have reviewed and concur with the information entered by Michell Garcia. This document represents the service I personally performed and the decisions made by me, Sean Whaley MD, [facility]. History of Present Illness Service Date and Time: 05/07/2022 1027 Reason for follow up: first compliance (RESMED SET UP 03/08/2022) Prior sleep studies: Yes Year and Where: 2007 [facility] Type of Sleep Study: Polysomnography HPI additional information: Mrs. Marquez was diagnosed to have mild obstructive sleep apnea-hypopnea syndrome and prescribed with a CPAP device. She returned today with her for follow up of CPAP therapy. The patient recently acquired a new ResMed AirSense 10 from [employer]. She uses the nasal pillows mask. She uses the new device every night and all night. The compliance data show usage in 60 out of the past 60 nights, averaging 8.8 hours a night. The residual AHI is 1.0 and average air leak is 4.4 L/minute. The current pressure setting is 10 cmH2O. The only complaint she has is air leaking into her eyes. Sleep Study - Results Type of Sleep Study: Polysomnography Prior sleep studies: Yes Year and Where: 2007 [facility] Subjective Initial Kaycee Sleepiness Scale score: 4 (02/07/2022) Current Kaycee Sleepiness Scale score: 6 (05/07/2022) Allergies and Home Medications Drug allergies reviewed: Yes Home medication list reviewed: Yes Allergy and home medication list: Allergies telmisartan [From Micardis] Adverse Reaction (Severe, Verified 06/21/17 19:07) Increased Heart Rate anxiety atorvastatin calcium * [From Lipitor] Adverse Reaction (Intermediate, Verified 06/21/17 19:07) Cough Lisnopril Adverse Reaction (Severe, Uncoded 06/21/17 19:07) Increased Heart Rate anxiety Review of Systems Review of systems same as previous: Yes Physical Exam Vital signs obtained and entered by: MICHELL Corey MA Blood Pressure: 118/70 (LEFT ARM) Cuff size: regular Heart Rate: 79 O2 Saturation: 98 Height: 5 ft 4 in Weight: 181 lb 6.4 oz Body Mass Index: 31.1 BMI Classification: Obese Impression and Plan IMPRESSION: 1. Obstructive Sleep Apnea-Hypopnea Syndrome, mild, with the patient doing well on nasal CPAP therapy. She has excellent compliance and significant clinical improvement. The current pressure appears effective and comfortable. Overall, she is very satisfied with treatment and plans to continue with it long-term. To help reduce the air leak, I will lower the pressure. PLAN: 1. The device was set to autoCPAP at 6 - 10 cmH2O via the memory card. 2. Try other masks, e.g. [employer] DreamWear nasal cushion mask and ResMed N30i mask. 3. Return in one year for follow up or earlier if there is any problem with the treatment. Follow up with Sleep Care in: 1 year Visit Type: In Office Other Participants: Spouse/Significant Other Time Spent with Patient (minutes): 15 Provider Statement: I spent 100% of the Face to Face Visit with the patient with greater than 50% spent counseling the patient and coordination of care.
== END 2022-05-07 10:28 | disposition home or self-care (01) ==
LOC: SC 10:27
PROVIDERS: ATTEND Internal Medicine Pulmonary Disease
DX: G47.33 Obstructive sleep apnea (adult) (pediatric) (principal)
CPT/HCPCS: 99212; G0463

== ENCOUNTER 2022-08-30 10:57 | Outpatient (CLI) | payer MEDICARE, OTHER ==
[2022-08-30] MEDS ORDERED: iohexoL-300 100 ML VIAL ONE (11:09)
[2022-08-30] MEDS ORDERED: iohexoL-300 100 ML VIAL IVP ONE (13:40)
[2022-08-30] MEDS ORDERED: DIATRIZOATE MEGLU/DIATRIZO SOD 30 ML BOTTLE PO ONE (13:40)
--- NOTE | 2022-08-30 14:16 | CT Report ---
PROCEDURE: ABDOMEN/PELVIS W INDICATIONS: ABD PAIN, UMBILICAL LUMPS CONTRAST: : 100ml OMnipaque 300 TECHNIQUE: After the administration of oral and intravenous contrast, 5 mm thick sections acquired from the diap hragms to the symphysis. 5 mm thick coronal and sagittal reformats were acquired. For radiation dos e reduction, the following was used: automated exposure control, adjustment of mA and/or kV accordin g to patient size. COMPARISON: CT 05/29/2017 FINDINGS: Lung bases and heart: Small right pleural effusion with pleural thickening. 1.7 cm pleural nodule is also present, new from prior (08/21).. Liver: Subcentimeter hypoattenuating lesions, too small to characterize by CT. Gallbladder and biliary tree: Cholelithasis without wall thickening. Bile ducts measure within normal limits. Spleen: Unremarkable. Pancreas: Unremarkable. Adrenals: No nodules. Kidneys: New left-sided hydronephrosis. Bowel and peritoneum: Prior partial colectomy. Nodularity in the surgical anastomosis is concerning f or local recurrence. Trace ascites. Peritoneal carcinomatosis, significantly increased in extent comp ared with prior. Examples include: -3.5 cm nodule along the left paracolic gutter, previously 0.9 cm (36). This is partially calcified . -3.5 cm deposit within the central pelvis, new from prior (). -3.8 cm and the left parastomal hernia (50). Lymph nodes: Calcified retroperitoneal lymph nodes, increased in size compared with prior. Vessels: No aortic aneurysm. PELVIS Reproductive organs: Unremarkable. Bladder and ureters: Unremarkable. Lymph nodes: No pelvic adenopathy. Bones: No aggressive osseous abnormality. Other: Nodularity along the anterior abdominal wall, with partial calcifications, presumably tumor de posits. Largest measures 2.3 cm in the low abdominal wall (3/40). IMPRESSION: 1.Prior partial colotomy. Nodularity along the surgical anastomosis is concerning for local recurrenc e. 2.New and growing omental deposits, concerning for recurrent malignancy. 3.New and growing subcutaneous deposits along the anterior laparotomy scar, presumably malignancy. 4.New right lower lobe pleural nodule with associated pleural effusion, likely a pleural deposit. 5.New left-sided hydronephrosis, probably obstructed by peritoneal deposit in the surgical bed. Consi kyle nephroureteral stent. Reviewed by: Rco Zamudio on 08/30/2022 2:15 PM PDT Approved by: Roc Zamudio on 08/30/2022 2:15 PM PDT Station ID: [id number]
--- NOTE | 2022-08-30 15:01 | Ultrasound Report ---
PROCEDURE: Abdomen Limited INDICATIONS: ABD PAIN, UMBILICAL LUMPS TECHNIQUE: Real-time focused scanning was performed of the abdominal wall, with image documentation. COMPARISON: CT abdomen pelvis 05/29/2017 and correlation made to CT performed same day FINDINGS: In the subdermal subcutaneous tissue immediately adjacent to the inferior aspect of the um bilical scar, there is a heterogeneous, hyperechoic nodule measuring 1.4 x 1.2 x 1.6 cm. Color Dopple r indicates trace intrinsic vascularity. There is increased through transmission. There are several i ntrinsic punctate echogenic foci. In the subdermal tissues along the superior aspect of the umbilicus, there is a circumscribed heterog eneously hyperechoic nodule measuring 1.7 x 1.0 x 1.9 cm with peripheral vascular flow. IMPRESSION: 1. Solid subdermal soft tissue nodules corresponding to nodule seen on CT scan. Taking all CT finding s and ultrasound findings together, these nodules are suspicious for metastatic disease. Reviewed by: Treasure Stewart MD on 08/30/2022 2:59 PM PDT Approved by: Treasure Stewart MD on 08/30/2022 2:59 PM PDT Station ID: [id number]
== END 2022-08-30 10:58 | disposition home or self-care (01) ==
LOC: DI 10:57
PROVIDERS: ATTEND Physician Assistant Medical
DX: R93.5 Abnormal findings on diagnostic imaging of other abdominal regions, including retroperitoneum (principal); R91.1 Solitary pulmonary nodule; N13.30 Unspecified hydronephrosis